=== PATIENT | male | born 1970 | race Two or more races ===

== ENCOUNTER 2019-12-02 10:58 | Emergency (ER) | payer OTHER ==
[2019-12-02 11:04] VITALS: TEMP 98
[2019-12-02] MEDS ORDERED: MORPHINE SULFATE 4 MG/ML SYRINGE IM STA (11:08)
--- NOTE | 2019-12-02 11:15 | ED ---
Lower Extremity Injury HPI - General Chief Complaint: Extremity Injury, Lower Stated Complaint: ankle injury-[facility] Time Seen by Provider: 12/02/19 11:04 Source: patient, RN notes reviewed Mode of arrival: wheelchair Limitations: no limitations - History of Present Illness Initial Comments: This a 49-year-old male presents emergency Department with chief complaint of left ankle foot injury. Patient states he was at work states that he is cleaning out a pain. States that there was a wet spot states she slipped, twisted his left foot, ankle. Patient states that he is unable bear weight secondary to pain. He had no head injury no loss conscious. Denies any other injuries from this. Patient had no prior fractures to his left ankle or foot. - Related Data Allergies Allergy/AdvReac Type Severity Reaction Status Date / Time No Known Allergies Allergy Verified 12/02/19 11:03 Review of Systems ROS Statement: Those systems with pertinent positive or pertinent negative responses have been documented in the HPI. ROS Other: All systems not noted in ROS Statement are negative. Past Medical History Past Medical History: No Reported History History of Any Multi-Drug Resistant Organisms: None Reported Past Surgical History: Orthopedic Surgery Past Psychological History: No Psychological Hx Reported Smoking Status: Never smoker Past Alcohol Use History: Occasional Past Drug Use History: None Reported General Exam Limitations: no limitations General appearance: alert, in no apparent distress Head exam: Present: atraumatic, normocephalic, normal inspection Respiratory exam: Present: normal lung sounds bilaterally. Absent: respiratory distress, wheezes, rales, rhonchi, stridor Cardiovascular Exam: Present: regular rate, normal rhythm, normal heart sounds. Absent: systolic murmur, diastolic murmur, rubs, gallop, clicks Extremities exam: Present: other (Left ankle, left foot there is moderate swelling slight ecchymosis neurovascular intact there is moderate tenderness with palpation to lateral foot and lateral malleoli region) Neurological exam: Present: alert, oriented X3, CN II-XII intact, reflexes normal. Absent: motor sensory deficit Skin exam: Present: warm, dry, intact, normal color. Absent: rash Course Vital Signs 12/02/19 10:59 Temperature 98.0 F Pulse Rate 65 Respiratory 19 Rate Blood Pressure 155/99 O2 Sat by Pulse 99 Oximetry Procedures - Orthopedic Splinting/Casting Injury #1 Side: left Lower Extremity Injury Location: short leg, ankle, foot Lower Extremity Immobilizer: posterior splint, synthetic pre-padded splint Other Orthopedic Equipment: crutches Medical Decision Making - Medical Decision Making X-ray of the left foot shows fracture of the fifth metatarsal, left ankle there is a bony irregularity which appears to be chronic in nature no acute fracture. Patient was splinted follow-up with orthopedics. Disposition Clinical Impression: Left ankle sprain, Displaced fracture of fifth metatarsal bone, left foot, initial encounter for closed fracture Disposition: HOME SELF-CARE Condition: Stable Instructions (If sedation given, give patient instructions): Foot Fracture in Adults (ED) Additional Instructions: Please return to the Emergency Department if symptoms worsen or any other concerns. Is patient prescribed a controlled substance at d/c from ED?: No Referrals: None,Stated [Primary Care Provider] - 1-2 days Ilir Gr MD [Medical Doctor] - 1-2 days
--- NOTE | 2019-12-02 12:05 | XR ---
EXAMINATION TYPE: XR ankle complete 3 views LT, XR foot complete 3 views LT DATE OF EXAM: 12/02/2019 COMPARISON: NONE HISTORY: 49-year-old male with pain after twisting injury FINDINGS: Left ankle: There is bony irregularity along the region of the syndesmosis. Some bimalleolar soft tissue swelling is also noted. Talar dome is intact. Ankle mortise remains congruent. Subtalar joint align. Small de lineation of the Achilles tendon. No acute fracture, subluxation, or dislocation. Left foot: Mild degenerative spurring first metatarsal sesamoid joint. Hastings's toe. There is an oblique, minima lly angulated fracture involving the distal third shaft of the fifth metatarsal. IMPRESSION: 1. Left ankle: Chronic bony irregularity along the syndesmosis suggests remote high ankle sprain. Bim alleolar soft tissue swelling. No acute osseous pneumonia seen. 2. Left foot: Oblique, minimally angulated fracture involving the distal third shaft of the fifth met atarsal.
[2019-12-02] MEDS ORDERED: ACET/COD 300 MG/30 MG STARTER PACK 6 TAB BTL PO STA (12:22)
[2019-12-02 12:32] VITALS: BP 143/87; PULSE 63; RESP 17
== END 2019-12-02 12:32 | disposition home or self-care (01) ==
LOC: EC 10:58
DX: S92.352A Displaced fracture of fifth metatarsal bone, left foot, initial encounter for closed fracture (principal); S93.402A Sprain of unspecified ligament of left ankle, initial encounter; W18.40XA Slipping, tripping and stumbling without falling, unspecified, initial encounter; Y93.H9 Activity, other involving exterior property and land maintenance, building and construction; Y92.69 Other specified industrial and construction area as the place of occurrence of the external cause; Y99.0 Civilian activity done for income or pay
CPT/HCPCS: 73610; 73630; 99283; 29515; 96372; J2270

== ENCOUNTER → 2020-06-18 | Outpatient (CLI) | payer OTHER ==
--- NOTE | 2020-06-18 12:34 | XR ---
EXAMINATION TYPE: XR femur 2 views RT, XR tibia fibula 2 views RT, XR knee 4V RT DATE OF EXAM: 06/18/2020 COMPARISON: NONE HISTORY: 49-year-old male right knee contusion, injury with pain and swelling. FINDINGS: Right femur: The hip articulation appears intact. No acute fracture of the more proximal to mid femur. Right knee: There is moderate degenerative spurring in the medial patellofemoral compartment. Diffuse soft tissue swelling but marked along the anterior infrapatellar and prepatellar region. Corticated bone density along the patella suggesting sequela of remote injury. There is an underlying small to moderate knee joint effusion. No acute fracture, subluxation, or dislocation is seen. Right tibia/fibula: Subcutaneous soft tissue swelling extends down to the mid leg level. No acute fracture of the more mi d to distal tibia or fibula. Corticated bone fragment below the medial malleolus suggests sequela of prior injury. IMPRESSION (right femur, knee, tibia/fibula): 1. Extensive soft tissue swelling especially along the prepatellar and anterior infrapatellar regions . Subcutaneous soft tissue swelling extends down to the mid leg level. 2. Underlying [id number] knee joint effusion. MRI can assess for any potential internal derang ement if indicated. 3. Moderate medial and patellofemoral compartment osteoarthrosis. Otherwise, no acute osseous abnorma lity seen.
== END | disposition home or self-care (01) ==
LOC: RADXRMAIN 11:21
PROVIDERS: ATTEND Emergency Medicine
DX: M17.11 Unilateral primary osteoarthritis, right knee (principal)

== ENCOUNTER 2021-02-17 10:40 | Emergency (ER) | payer OTHER ==
[2021-02-17 10:44] VITALS: TEMP 97.7
[2021-02-17] MEDS ORDERED: SODIUM CHLORIDE 0.9% 1,000 ML IV STA (10:49)
--- NOTE | 2021-02-17 10:52 | ED ---
SOB HPI - General Chief Complaint: Shortness of Breath Stated Complaint: SOB (10 days post Covid dx) Time Seen by Provider: 02/17/21 10:46 Source: patient, RN notes reviewed Mode of arrival: ambulatory Limitations: no limitations - History of Present Illness Initial Comments: Patient is a 50-year-old male that presents to emergency department complaining of increased dyspnea. He notes that he did test positive for Covid on 01/03/2021. He notes that since then he related doesn't feel he's got much better. He notes that dyspnea is increased on exertion while he is trying to work. He notes a tried to go to work today but decided come in to get ev aluated. He was well-appearing, well-hydrated while sitting up in bed during exam and interview. He notes that it feels like he just can't get a full breath and. He was in no distress or pain. He denied any chest pain headache nausea vomiting diarrhea constipation fever fatigue chills. - Related Data Home Medications Medication Instructions Recorded Confirmed No Known Home Medications 02/17/21 02/17/21 Allergies Allergy/AdvReac Type Severity Reaction Status Date / Time No Known Allergies Allergy Verified 02/17/21 11:39 Review of Systems ROS Statement: Those systems with pertinent positive or pertinent negative responses have been documented in the HPI. ROS Other: All systems not noted in ROS Statement are negative. Past Medical History Past Medical History: No Reported History History of Any Multi-Drug Resistant Organisms: None Reported Past Surgical History: Orthopedic Surgery Past Psychological History: No Psychological Hx Reported Smoking Status: Never smoker Past Alcohol Use History: Occasional Past Drug Use History: None Reported General Exam Limitations: no limitations General appearance: alert, in no apparent distress Head exam: Present: atraumatic, normocephalic, normal inspection Eye exam: Present: normal appearance, PERRL, EOMI. Absent: scleral icterus, conjunctival injection, periorbital swelling Neck exam: Present: normal inspection Respiratory exam: Present: normal lung sounds bilaterally. Absent: respiratory distress, wheezes, rales, rhonchi, stridor Cardiovascular Exam: Present: regular rate, normal rhythm, normal heart sounds. Absent: systolic murmur, diastolic murmur, rubs, gallop, clicks GI/Abdominal exam: Present: soft, normal bowel sounds. Absent: distended, tenderness, guarding, rebound, rigid Extremities exam: Present: normal inspection, full ROM, normal capillary refill. Absent: tenderness, pedal edema, joint swelling, calf tenderness Neurological exam: Present: alert, oriented X3, CN II-XII intact Psychiatric exam: Present: normal affect, normal mood Skin exam: Present: warm, dry, intact, normal color. Absent: rash Course Vital Signs 02/17/21 10:41 Temperature 97.7 F Pulse Rate 73 Respiratory 16 Rate Blood Pressure 126/85 O2 Sat by Pulse 95 Oximetry Medical Decision Making - Medical Decision Making 80-year-old male with dyspnea who is Covid-positive on 01/03/2021. Labs, chest x-ray, 1 L normal saline ordered. Labs unremarkable. Chest x-ray shows patchy infiltrates. Case discussed with Dr. Esquivel, patient discharge home with conservative management. - Lab Data Result diagrams: 02/17/21 11:26 02/17/21 11:26 Lab Results 02/17/21 02/17/21 02/17/21 Range/Units 11:26 11:26 11:26 WBC 6.8 (3.8-10.6) k/uL RBC 4.35 (4.30-5.90) m/uL Hgb 13.6 (13.0-17.5) gm/dL Hct 37.9 L (39.0-53.0) % MCV 87.0 (80.0-100.0) fL MCH 31.2 (25.0-35.0) pg MCHC 35.9 (31.0-37.0) g/dL RDW 11.9 (11.5-15.5) % Plt Count 535 H (150-450) k/uL MPV 8.2 Neutrophils % 71 % Lymphocytes % 20 % Monocytes % 5 % Eosinophils % 3 % Basophils % 1 % Neutrophils # 4.8 (1.3-7.7) k/uL Lymphocytes # 1.4 (1.0-4.8) k/uL Monocytes # 0.4 (0-1.0) k/uL Eosinophils # 0.2 (0-0.7) k/uL Basophils # 0.1 (0-0.2) k/uL Sodium 138 (137-145) mmol/L Potassium 4.1 (3.5-5.1) mmol/L Chloride 105 (98-107) mmol/L Carbon Dioxide 23 (22-30) mmol/L Anion Gap 10 mmol/L BUN 12 (9-20) mg/dL Creatinine 0.78 (0.66-1.25) mg/dL Est GFR (CKD-EPI)AfAm >90 (>60 ml/min/1.73 sqM) Est GFR (CKD-EPI)NonAf >90 (>60 ml/min/1.73 sqM) Glucose 129 H (74-99) mg/dL Plasma Lactic Acid Kory 1.6 (0.7-2.0) mmol/L Calcium 9.3 (8.4-10.2) mg/dL Total Bilirubin 0.5 (0.2-1.3) mg/dL AST 33 (17-59) U/L ALT 51 H (4-49) U/L Alkaline Phosphatase 77 (38-126) U/L Total Protein 7.5 (6.3-8.2) g/dL Albumin 3.8 (3.5-5.0) g/dL - EKG Data -: EKG Interpreted by Me EKG shows normal: sinus rhythm Rate: normal EKG Comments: Ventricular rate 75 bpm, AL interval 160 ms, QRS duration 84 ms, QT/QTC 396/442 ms, PRT axis 27/53/25. Normal sinus rhythm, normal ECG. - Radiology Data Radiology results: report reviewed, image reviewed Chest x-ray: Patchy airspace infiltrate are seen bilaterally. Disposition Clinical Impression: Pneumonia due to COVID-19 virus Disposition: HOME SELF-CARE Condition: Stable Instructions (If sedation given, give patient instructions): Coronavirus Disease 2019 (COVID-19) Additional Instructions: Please return to the Emergency Department if symptoms worsen or any other concerns. Follow-up with primary care in 3-5 days. Continue to increase oral fluids and take [id number] anti-inflammatories for any aches pains or fevers. It will just take some time. Lungs to heal fully from Covid infection. Is patient prescribed a controlled substance at d/c from ED?: No Referrals: None,Stated [Primary Care Provider] - 1-2 days Time of Disposition: 13:27
[2021-02-17 11:53] LABS: ALT 51 U/L (4-49); AST 33 U/L (17-59); African American GFR (CKD) >90 (>60 ml/min/1.73 sqM); Albumin 3.8 g/dL (3.5-5.0); Alkaline Phosphatase 77 U/L (38-126); Anion Gap 10 mmol/L; Blood Urea Nitrogen 12 mg/dL (9-20); Calcium 9.3 mg/dL (8.4-10.2); Carbon Dioxide 23 mmol/L (22-30); Chloride 105 mmol/L (98-107); Glucose 129 mg/dL (74-99); Non-African American GFR(CKD) >90 (>60 ml/min/1.73 sqM); Potassium 4.1 mmol/L (3.5-5.1); Sodium 138 mmol/L (137-145); Total Bilirubin 0.5 mg/dL (0.2-1.3); Total Protein 7.5 g/dL (6.3-8.2)
--- NOTE | 2021-02-17 11:53 | XR ---
EXAMINATION TYPE: XR chest 2V DATE OF EXAM: 02/17/2021 COMPARISON: 02/17/21 HISTORY: difficulty breathing TECHNIQUE: Frontal and lateral views of the chest are obtained. FINDINGS: Patchy airspace infiltrates are seen bilaterally. No evidence for pneumothorax. No pleural effusion. The cardiac silhouette size is within normal limits. The osseous structures are grossly intact. IMPRESSION: 1. Patchy airspace infiltrates are seen bilaterally.
[2021-02-17 11:57] LABS: Basophils # (A) 0.1 k/uL (0-0.2); Basophils % (A) 1 %; Eosinophils # (A) 0.2 k/uL (0-0.7); Eosinophils % (A) 3 %; HCT 37.9 % (39.0-53.0); HGB 13.6 gm/dL (13.0-17.5); Lymphocytes # (A) 1.4 k/uL (1.0-4.8); Lymphocytes % (A) 20 %; MCH 31.2 pg (25.0-35.0); MCHC 35.9 g/dL (31.0-37.0); Mean Platelet Volume 8.2; Monocytes # (A) 0.4 k/uL (0-1.0); Monocytes % (A) 5 %; Neutrophils # (A) 4.8 k/uL (1.3-7.7); Neutrophils % (A) 71 %; Platelet Count 535 k/uL (150-450); RBC 4.35 m/uL (4.30-5.90); RDW 11.9 % (11.5-15.5); WBC 6.8 k/uL (3.8-10.6)
[2021-02-17] MEDS ORDERED: DEXAMETHASONE SOD PHOSPHATE 10 MG/ML 1 ML VIAL IV STA (13:21)
[2021-02-17 13:48] VITALS: BP 139/95; PULSE 68; RESP 18
== END 2021-02-17 13:48 | disposition home or self-care (01) ==
LOC: EC 10:40
DX: U07.1 COVID-19 (principal); J12.82 Pneumonia due to coronavirus disease 2019
CPT/HCPCS: 36415; 93005; 80053; 83605; 85025; 71046; 99285; 96374; 96361 ×3; J1100

== ENCOUNTER 2021-02-22 13:20 | Emergency (ER) | payer OTHER ==
[2021-02-22 13:38] VITALS: BP 123/82; TEMP 97.9
[2021-02-22 14:08] VITALS: PULSE 76; RESP 18
[2021-02-22] MEDS ORDERED: SODIUM CHLORIDE 0.9% 1,000 ML IV STA (14:52)
--- NOTE | 2021-02-22 15:28 | ED ---
ENT HPI - General Chief complaint: ENT Stated complaint: revisit - Covid+, trouble swallowing Time Seen by Provider: 02/22/21 14:39 Source: patient Mode of arrival: ambulatory Limitations: no limitations - History of Present Illness Initial comments: 50-year-old male presents emergency Department and she will complain of difficulty swallowing and abdominal pain. Patient reports symptoms began yesterday when he developed difficulty swallowing. States he still able to eat and drink a feels like the food is "getting stuck" in his throat although it is still able to pass through to the stomach. He denies any nausea or vomiting or diarrhea. States she is also developed some epigastric abdominal pain that seems to be exacerbated whenever he is eating large meals. Denies any chest pain or shortness of breath. He denies any choking episodes or difficulty breathing. Denies painful swallowing. - Related Data Home Medications Medication Instructions Recorded Confirmed No Known Home Medications 02/17/21 02/22/21 Allergies Allergy/AdvReac Type Severity Reaction Status Date / Time No Known Allergies Allergy Verified 02/22/21 16:10 Review of Systems ROS Statement: Those systems with pertinent positive or pertinent negative responses have been documented in the HPI. ROS Other: All systems not noted in ROS Statement are negative. Past Medical History Past Medical History: No Reported History History of Any Multi-Drug Resistant Organisms: None Reported Past Surgical History: Orthopedic Surgery Past Psychological History: No Psychological Hx Reported Smoking Status: Never smoker Past Alcohol Use History: Occasional Past Drug Use History: None Reported General Exam Limitations: no limitations General appearance: alert, in no apparent distress Head exam: Present: atraumatic, normocephalic, normal inspection Eye exam: Present: normal appearance, PERRL, EOMI Pupils: Present: normal accommodation ENT exam: Present: normal exam, normal oropharynx, mucous membranes moist, TM's normal bilaterally, normal external ear exam Neck exam: Present: normal inspection, full ROM. Absent: tenderness Respiratory exam: Present: normal lung sounds bilaterally. Absent: respiratory distress, wheezes, rales, rhonchi, stridor, chest wall tenderness, accessory muscle use Cardiovascular Exam: Present: regular rate, normal rhythm, normal heart sounds. Absent: systolic murmur GI/Abdominal exam: Present: soft, tenderness (Mild epigastric tenderness). A bsent: distended, guarding, rebound, rigid Extremities exam: Present: normal inspection, full ROM, normal capillary refill. Absent: tenderness, pedal edema, joint swelling Back exam: Present: normal inspection, full ROM. Absent: tenderness, CVA ten derness (R), CVA tenderness (L) Neurological exam: Present: alert, oriented X3 Psychiatric exam: Present: normal affect, normal mood Skin exam: Present: warm, dry, intact, normal color Course Vital Signs 02/22/21 13:36 Temperature 97.9 F Pulse Rate 76 Respiratory 18 Rate Blood Pressure 123/82 O2 Sat by Pulse 97 Oximetry Medical Decision Making - Medical Decision Making 50-year-old male presents to the emergency department with a chief complaint of abdominal pain and difficulty swallowing. The physical examination is unremarkable. I was able to watch the patient ED applesauce and drink water without any difficulty. CBC CMP UA unremarkable. Barium swallow test performed showing tertiary contractions of the esophagus with occasional delayed emptying into the stomach. This can be correlated for dysmotility. Direct visualization is recommended by radiology. Advised the patient to follow up with a GI specialist. Return parameters were discussed with patient was standing agreeable. Case discussed with - Lab Data Result diagrams: 02/22/21 15:36 02/22/21 15:36 Lab Results 02/22/21 02/22/21 02/22/21 Range/Units 15:36 15:36 15:36 WBC 6.3 (3.8-10.6) k/uL RBC 4.83 (4.30-5.90) m/uL Hgb 14.4 (13.0-17.5) gm/dL Hct 42.3 (39.0-53.0) % MCV 87.6 (80.0-100.0) fL MCH 29.8 (25.0-35.0) pg MCHC 34.0 (31.0-37.0) g/dL RDW 13.0 (11.5-15.5) % Plt Count 557 H (150-450) k/uL MPV 6.9 Neutrophils % 57 % Lymphocytes % 32 % Monocytes % 4 % Eosinophils % 3 % Basophils % 1 % Neutrophils # 3.6 (1.3-7.7) k/uL Lymphocytes # 2.0 (1.0-4.8) k/uL Monocytes # 0.3 (0-1.0) k/uL Eosinophils # 0.2 (0-0.7) k/uL Basophils # 0.1 (0-0.2) k/uL Sodium 138 (137-145) mmol/L Potassium 4.5 (3.5-5.1) mmol/L Chloride 106 (98-107) mmol/L Carbon Dioxide 24 (22-30) mmol/L Anion Gap 8 mmol/L BUN 14 (9-20) mg/dL Creatinine 0.80 (0.66-1.25) mg/dL Est GFR (CKD-EPI)AfAm >90 (>60 ml/min/1.73 sqM) Est GFR (CKD-EPI)NonAf >90 (>60 ml/min/1.73 sqM) Glucose 98 (74-99) mg/dL Calcium 9.5 (8.4-10.2) mg/dL Total Bilirubin 0.5 (0.2-1.3) mg/dL AST 23 (17-59) U/L ALT 41 (4-49) U/L Alkaline Phosphatase 70 (38-126) U/L Total Protein 7.5 (6.3-8.2) g/dL Albumin 4.0 (3.5-5.0) g/dL Amylase 63 (30-110) U/L Lipase 146 (23-300) U/L Urine Color Light Yellow Urine Appearance Clear (Clear) Urine pH 5.5 (5.0-8.0) Ur Specific [place] 1.012 (1.001-1.035) Urine Protein Negative (Negative) Urine Glucose (UA) Negative (Negative) Urine Ketones Negative (Negative) Urine Blood Negative (Negative) Urine Nitrite Negative (Negative) Urine Bilirubin Negative (Negative) Urine Urobilinogen <2.0 (<2.0) mg/dL Ur Leukocyte Esterase Negative (Negative) Disposition Clinical Impression: Difficulty swallowing, Abdominal pain Disposition: HOME SELF-CARE Condition: Stable Instructions (If sedation given, give patient instructions): Dysphagia (ED) Additional Instructions: Follow with a GI specialist. Return to emergency department if symptoms worsen. Is patient prescribed a controlled substance at d/c from ED?: No Referrals: None,Stated [Primary Care Provider] - 1-2 days Jarrod Lopez MD [STAFF PHYSICIAN] - 1-2 days Time of Disposition: 16:08
--- NOTE | 2021-02-22 15:31 | FL ---
EXAMINATION TYPE: FL barium swallow DATE OF EXAM: 02/22/2021 CLINICAL HISTORY: Dysphasia TECHNIQUE: A double contrast esophagram is performed utilizing air and barium. A total of 62 second s of fluoroscopic time was utilized during procedure. 33 images submitted COMPARISON: None FINDINGS: The esophagus shows occasional tertiary contractions of the esophagus and episodes of delay ed emptying into the stomach. No evidence of hiatal hernia or stricture noted. No significant gastro esophageal reflux was seen during real time performance of this study. IMPRESSION: 1. Tertiary contractions of the esophagus with occasional delayed emptying into the stomach correlate for dysmotility. Direct visualization is recommended.
[2021-02-22 15:48] LABS: Basophils # (A) 0.1 k/uL (0-0.2); Basophils % (A) 1 %; Eosinophils # (A) 0.2 k/uL (0-0.7); Eosinophils % (A) 3 %; HCT 42.3 % (39.0-53.0); HGB 14.4 gm/dL (13.0-17.5); Lymphocytes % (A) 32 %; MCH 29.8 pg (25.0-35.0); MCV 87.6 fL (80.0-100.0); Mean Platelet Volume 6.9; Monocytes # (A) 0.3 k/uL (0-1.0); Monocytes % (A) 4 %; Neutrophils # (A) 3.6 k/uL (1.3-7.7); Neutrophils % (A) 57 %; Platelet Count 557 k/uL (150-450); RBC 4.83 m/uL (4.30-5.90); WBC 6.3 k/uL (3.8-10.6)
[2021-02-22 15:57] LABS: Appearance,Urine Clear (Clear); Bilirubin,Urine Negative (Negative); Blood,Urine Negative (Negative); Color,Urine Light Yellow; Glucose,Urine (UA) Negative (Negative); Ketones,Urine Negative (Negative); Leukocyte Esterase,Urine Negative (Negative); Nitrite,Urine Negative (Negative); PH, Urine 5.5 (5.0-8.0); Protein,Urine Negative (Negative); Specific Gravity,Urine 1.012 (1.001-1.035); Urobilinogen,Urine <2.0 mg/dL (<2.0)
[2021-02-22 16:04] LABS: ALT 41 U/L (4-49); AST 23 U/L (17-59); African American GFR (CKD) >90 (>60 ml/min/1.73 sqM); Alkaline Phosphatase 70 U/L (38-126); Amylase 63 U/L (30-110); Anion Gap 8 mmol/L; Blood Urea Nitrogen 14 mg/dL (9-20); Calcium 9.5 mg/dL (8.4-10.2); Carbon Dioxide 24 mmol/L (22-30); Chloride 106 mmol/L (98-107); Glucose 98 mg/dL (74-99); Lipase 146 U/L (23-300); Non-African American GFR(CKD) >90 (>60 ml/min/1.73 sqM); Potassium 4.5 mmol/L (3.5-5.1); Sodium 138 mmol/L (137-145); Total Bilirubin 0.5 mg/dL (0.2-1.3); Total Protein 7.5 g/dL (6.3-8.2)
== END 2021-02-22 16:19 | disposition home or self-care (01) ==
LOC: EC 13:20
DX: R13.10 Dysphagia, unspecified (principal); R10.13 Epigastric pain
CPT/HCPCS: 36415; 74220; 80053; 81003; 82150; 83690; 85025; 99284

== ENCOUNTER → 2022-06-27 | Outpatient (CLI) | payer OTHER ==
--- NOTE | 2022-06-27 09:00 | US ---
EXAMINATION TYPE: US gallbladder DATE OF EXAM: 06/27/2022 COMPARISON: NONE CLINICAL HISTORY: R10.84 abd pain, K21.9 gerd. TECHNIQUE: Multiple sonographic images of the right upper quadrant are obtained. FINDINGS: EXAM MEASUREMENTS: Liver Length: 16.3 cm Gallbladder Wall: 0.2 cm CBD: 0.3 cm Right Kidney: 10.5 x 3.5 x 4.8 cm [employer] NOTES: Pancreas: wnl Liver: hypoechoic areas adjacent to gallbladder probable focal fatty sparing Gallbladder: probable mild sludge Evidence for sonographic Richard's sign: No CBD: wnl Right Kidney: wnl IMPRESSION: 1. Hepatocellular disease commonly relating to hepatic steatosis. There is focal fatty sparing noted . 2. Mild biliary sludge.
--- NOTE | 2022-06-27 09:27 | FL ---
EXAMINATION TYPE: FL UGI air DATE OF EXAM: 06/27/2022 COMPARISON: Esophagram 02/22/2021. HISTORY: R10.84 abd pain, K21.9 gerd TECHNIQUE: A double contrast UGI study is performed. A total of 31 seconds of fluoroscopic time was utilized during procedure and 190 images obtained. FINDINGS: The esophagus shows normal motility and emptying into the stomach. No evidence of hiatal hernia or s tricture noted. There are filling defects demonstrated within the distal third of the esophagus with mucosal thickening. The stomach shows normal distensibility, peristalsis, and mucosal folds. No evidence of any mass or ulcer disease. No significant gastroesophageal reflux was seen during real time performance of this study. The duodenal bulb, sweep, and proximal small bowel loops are unremarkable. IMPRESSION: Distal third of the esophagus shows mucosal thickening with suggested filling defects which may repre sent ulceration. Findings suggest esophagitis. Consider further evaluation with endoscopy.
== END | disposition home or self-care (01) ==
LOC: RADUSWWP 08:02
PROVIDERS: ATTEND Family Medicine
DX: K76.0 Fatty (change of) liver, not elsewhere classified (principal)
CPT/HCPCS: 74246; 76705

== ENCOUNTER 2022-10-24 11:25 | Emergency (ER) | payer OTHER ==
--- NOTE | 2022-10-24 11:40 | ED ---
General Adult HPI - General Source: patient, RN notes reviewed Mode of arrival: ambulatory Limitations: no limitations <Orville Reyes - Last Filed: 10/24/22 11:39> <Octaviano Husain - Last Filed: 10/24/22 14:34> - General Stated complaint: Abd pain Time Seen by Provider: 10/24/22 11:39 - History of Present Illness Initial comments: 52-year-old male presents emergency Department with chief complaint of right- sided abdominal pain. Patient this started on Monday. Patient states it does hurt to move. He denies any prior abdominal surgeries including cholecystomy, appendectomy. Patient had no vomiting he states he is having bowel movements is less than usual. No dysuria no hematuria no reports of fever. (Orville Reyes) This a 52-year-old male presents emergency department stating that he has been experiencing some right-sided lower back and flank pain. Patient states symptoms started on Monday and they've continued to hurt. Patient states movement does seem to make it worse. Patient denies any nausea or vomiting. Patient denies any diarrhea. Patient denies any fever chills. Patient has chest pain. Patient said difficulty breathing or shortness of breath. Patient states he has not lifted or moved or worked out and any way last week since this occurred so he does not believe it secondary to an injury. Patient is still eating and drinking just not as much is normal (Octaviano Husain) - Related Data Previous Rx's Medication Instructions Recorded Cyclobenzaprine [Flexeril] 10 mg PO TID #20 tab 10/24/22 Ibuprofen [Motrin] 600 mg PO Q6HR PRN #20 tab 10/24/22 Allergies Allergy/AdvReac Type Severity Reaction Status Date / Time No Known Allergies Allergy Verified 02/22/21 16:10 Review of Systems ROS Other: All systems not noted in ROS Statement are negative. <Orville Reyes - Last Filed: 10/24/22 11:39> ROS Other: All systems not noted in ROS Statement are negative. <Octaviano Husain - Last Filed: 10/24/22 14:34> ROS Statement: Those systems with pertinent positive or pertinent negative responses have been documented in the HPI. Past Medical History Past Medical History: No Reported History History of Any Multi-Drug Resistant Organisms: None Reported Past Surgical History: Orthopedic Surgery Past Psychological History: No Psychological Hx Reported Smoking Status: Never smoker Past Alcohol Use History: Occasional Past Drug Use History: None Reported <AnselmoarmaniOrville Pamella - Last Filed: 10/24/22 11:39> General Exam <Octaviano Husain - Last Filed: 10/24/22 14:34> - General Exam Comments Initial Comments: GENERAL: Patient is well-developed and well-nourished. Patient is nontoxic and well- hydrated and is in mild distress. ENT: Neck is soft and supple. No significant lymphadenopathy is noted. Oropharynx is clear. Moist mucous membranes. Neck has full range of motion without eliciting any pain. EYES: The sclera were anicteric and conjunctiva were pink and moist. Extraocular movements were intact and pupils were equal round and reactive to light. Eyelids were unremarkable. PULMONARY: Unlabored respirations. Good breath sounds bilaterally. No audible rales rhonchi or wheezing was noted. CARDIOVASCULAR: There is a regular rate and rhythm without any murmurs gallops or rubs. ABDOMEN: Patient has tenderness to the right flank going into the lower back. SKIN: Skin is clear with no lesions or rashes and otherwise unremarkable. NEUROLOGIC: Patient is alert and oriented x3. Cranial nerves II through XII are grossly intact. Motor and sensory are also intact. Normal speech, volume and content. Symmetrical smile. MUSCULOSKELETAL: Normal extremities with adequate strength and full range of motion. LYMPHATICS: No significant lymphadenopathy is noted PSYCHIATRIC: Normal psychiatric evaluation. (Octaviano Husain) Course Vital Signs 10/24/22 11:53 Temperature 97.7 F Pulse Rate 60 Respiratory 16 Rate Blood Pressure 127/83 O2 Sat by Pulse 98 Oximetry Medical Decision Making - Lab Data Result diagrams: 10/24/22 13:23 10/24/22 13:23 <Octaviano Husain - Last Filed: 10/24/22 14:34> - Medical Decision Making Was pt. sent in by a medical professional or institution (, [facility], DIRECTOR OF SUSTAINABILITY, urgent care, hospital, or longterm...) When possible be specific @ -No Did you speak to anyone other than the patient for history (EMS, parent, family, police, friend...)? What history was obtained from this source @ -No Did you review nursing and triage notes (agree or disagree)? Why? @ -I reviewed and agree with nursing and triage notes Were old charts reviewed (outside hosp., previous admission, EMS record, old EKG, old radiological studies, urgent care reports/EKG's, longterm records)? Report findings @ -No old charts were reviewed Differential Diagnosis (chest pain, altered mental status, abdominal pain women, abdominal pain men, vaginal bleeding, weakness, fever, dyspnea, syncope, headache, dizziness, GI bleed, back pain, seizure, CVA, palpatations, mental health)? @ -Differential Abdominal Pain Men: Appendicitis, cholecystitis, diverticulosis, ischemic bowel, pancreatitis, hepatitis, UTI, gastroenteritis, AAA, incarcerated hernia, bowel obstruction, constipation, inflammatory bowel, hepatitis, peptic ulcer disease, splenic infarction, perforated viscus, testicular torsion, this is not meant to be an al l-inclusive list EKG interpreted by me (3pts min.). @ -As above X-rays interpreted by me (1pt min.). @ -None done CT interpreted by me (1pt min.). @ -No U/S interpreted by me (1pt. min.). @ -None done What testing was considered but not performed or refused? (CT, X-rays, U/S, labs)? Why? @ -Did consider CT of the abdomen and pelvis was initially his complaint on the chart was abdominal pain but his pain was much more in the lower back and a little in the flank it was reproducible with palpation it also is worse with bending or twisting. What meds were considered but not given or refused? Why? @ -None Did you discuss the management of the patient with other professionals (professionals i.e. , PA, DIRECTOR OF SUSTAINABILITY, lab, RT, psych nurse, social work job titles, float tender, teacher, soil science technical officer, case hardener)? Give summary @ -No Was smoking cessation discussed for >3mins.? @ -No Was critical care preformed (if so, how long)? @ -No Were there social determinants of health that impacted care today? How? (Homelessness, low income, unemployed, alcoholism, drug addiction, transportation, low edu. Level, literacy, decrease access to med. care, usp, r ehab)? @ -No Was there de-escalation of care discussed even if they declined (Discuss DNR or withdrawal of care, Hospice)? DNR status @ -No What co-morbidities impacted this encounter? (DM, HTN, Smoking, COPD, CAD, Cancer, CVA, ARF, Chemo, Hep., AIDS, mental health diagnosis, sleep apnea, morbid obesity)? @ -None Was patient admitted / discharged? Hospital course, mention meds given and route, prescriptions, significant lab abnormalities, going to OR and other pertinent info. @ -Discharged home to follow-up with the primary medical care doctor. Patient did get Toradol emergency department. He looked more comfortable but he was scrap kettle tender on palpation he had no abdominal tenderness whatsoever Undiagnosed new problem with uncertain prognosis? @ -No Drug Therapy requiring intensive monitoring for toxicity (Heparin, Nitro, Insulin, Cardizem)? @ -No Were any procedures done? @ -No Diagnosis/symptom? @ -Lower back strain Acute, or Chronic, or Acute on Chronic? @ -Acute Uncomplicated (without systemic symptoms) or Complicated (systemic symptoms)? @ -Uncomplicated transfer techs Side effects of treatment? @ -No Exacerbation, Progression, or Severe Exacerbation? @ -No Poses a threat to life or bodily function? How? (Chest pain, [place], [place], pneumonia, PE, COPD, DKA, ARF, appy, cholecystitis, CVA, Diverticulitis, Homicidal, Suicidal, threat to staff... and all critical care pts) @ -No (Octaviano Husain) - Lab Data Lab Results 10/24/22 10/24/22 10/24/22 Range/Units 13:23 13:23 13:23 WBC 5.1 (3.8-10.6) k/uL RBC 4.94 (4.30-5.90) m/uL Hgb 15.3 (13.0-17.5) gm/dL Hct 44.3 (39.0-53.0) % MCV 89.7 (80.0-100.0) fL MCH 30.9 (25.0-35.0) pg MCHC 34.4 (31.0-37.0) g/dL RDW 12.2 (11.5-15.5) % Plt Count 220 (150-450) k/uL MPV 8.9 Neutrophils % 46 % Lymphocytes % 38 % Monocytes % 7 % Eosinophils % 6 % Basophils % 1 % Neutrophils # 2.3 (1.3-7.7) k/uL Lymphocytes # 1.9 (1.0-4.8) k/uL Monocytes # 0.4 (0-1.0) k/uL Eosinophils # 0.3 (0-0.7) k/uL Basophils # 0.1 (0-0.2) k/uL Sodium 140 (137-145) mmol/L Potassium 4.3 (3.5-5.1) mmol/L Chloride 106 (98-107) mmol/L Carbon Dioxide 27 (22-30) mmol/L Anion Gap 7 mmol/L BUN 12 (9-20) mg/dL Creatinine 1.02 (0.66-1.25) mg/dL Est GFR (CKD-EPI)AfAm >90 (>60 ml/min/1.73 sqM) Est GFR (CKD-EPI)NonAf 84 (>60 ml/min/1.73 sqM) Glucose 161 H (74-99) mg/dL Plasma Lactic Acid Kory (0.7-2.0) mmol/L Calcium 9.3 (8.4-10.2) mg/dL Total Bilirubin 0.5 (0.2-1.3) mg/dL AST 35 (17-59) U/L ALT 91 H (4-49) U/L Alkaline Phosphatase 58 (38-126) U/L Total Protein 7.9 (6.3-8.2) g/dL Albumin 4.4 (3.5-5.0) g/dL Amylase 64 (30-110) U/L Lipase 132 (23-300) U/L Urine Color Yellow Urine Appearance Clear (Clear) Urine pH 5.5 (5.0-8.0) Ur Specific [place] 1.023 (1.001-1.035) Urine Protein Trace H (Negative) Urine Glucose (UA) 4+ H (Negative) Urine Ketones Negative (Negative) Urine Blood Trace H (Negative) Urine Nitrite Negative (Negative) Urine Bilirubin Negative (Negative) Urine Urobilinogen <2.0 (<2.0) mg/dL Ur Leukocyte Esterase Negative (Negative) Urine RBC 1 (0-5) /hpf Urine WBC 1 (0-5) /hpf Urine Mucus Few H (None) /hpf 10/24/22 Range/Units 13:23 WBC (3.8-10.6) k/uL RBC (4.30-5.90) m/uL Hgb (13.0-17.5) gm/dL Hct (39.0-53.0) % MCV (80.0-100.0) fL MCH (25.0-35.0) pg MCHC (31.0-37.0) g/dL RDW (11.5-15.5) % Plt Count (150-450) k/uL MPV Neutrophils % % Lymphocytes % % Monocytes % % Eosinophils % % Basophils % % Neutrophils # (1.3-7.7) k/uL Lymphocytes # (1.0-4.8) k/uL Monocytes # (0-1.0) k/uL Eosinophils # (0-0.7) k/uL Basophils # (0-0.2) k/uL Sodium (137-145) mmol/L Potassium (3.5-5.1) mmol/L Chloride (98-107) mmol/L Carbon Dioxide (22-30) mmol/L Anion Gap mmol/L BUN (9-20) mg/dL Creatinine (0.66-1.25) mg/dL Est GFR (CKD-EPI)AfAm (>60 ml/min/1.73 sqM) Est GFR (CKD-EPI)NonAf (>60 ml/min/1.73 sqM) Glucose (74-99) mg/dL Plasma Lactic Acid Kory 1.1 (0.7-2.0) mmol/L Calcium (8.4-10.2) mg/dL Total Bilirubin (0.2-1.3) mg/dL AST (17-59) U/L ALT (4-49) U/L Alkaline Phosphatase (38-126) U/L Total Protein (6.3-8.2) g/dL Albumin (3.5-5.0) g/dL Amylase (30-110) U/L Lipase (23-300) U/L Urine Color Urine Appearance (Clear) Urine pH (5.0-8.0) Ur Specific [place] (1.001-1.035) Urine Protein (Negative) Urine Glucose (UA) (Negative) Urine Ketones (Negative) Urine Blood (Negative) Urine Nitrite (Negative) Urine Bilirubin (Negative) Urine Urobilinogen (<2.0) mg/dL Ur Leukocyte Esterase (Negative) Urine RBC (0-5) /hpf Urine WBC (0-5) /hpf Urine Mucus (None) /hpf Disposition <Orville Reyes - Last Filed: 10/24/22 11:39> Is patient prescribed a controlled substance at d/c from ED?: No Time of Disposition: 14:33 <Octaviano Husain - Last Filed: 10/24/22 14:34> Clinical Impression: Back strain Disposition: HOME SELF-CARE Condition: Good Prescriptions: Cyclobenzaprine [Flexeril] 10 mg PO TID #20 tab Ibuprofen [Motrin] 600 mg PO Q6HR PRN #20 tab PRN Reason: For pain Referrals: Joshua Maya MD [Primary Care Provider] - 1-2 days
[2022-10-24] MEDS ORDERED: KETOROLAC 15 MG/ML 1 ML VIAL IVP STA (12:56)
[2022-10-24] MEDS ORDERED: SODIUM CHLORIDE 0.9% 1,000 ML IV ONE (12:57)
[2022-10-24 13:34] LABS: Basophils # (A) 0.1 k/uL (0-0.2); Basophils % (A) 1 %; Eosinophils # (A) 0.3 k/uL (0-0.7); Eosinophils % (A) 6 %; HCT 44.3 % (39.0-53.0); HGB 15.3 gm/dL (13.0-17.5); Lymphocytes # (A) 1.9 k/uL (1.0-4.8); Lymphocytes % (A) 38 %; MCH 30.9 pg (25.0-35.0); MCHC 34.4 g/dL (31.0-37.0); MCV 89.7 fL (80.0-100.0); Mean Platelet Volume 8.9; Monocytes # (A) 0.4 k/uL (0-1.0); Monocytes % (A) 7 %; Neutrophils # (A) 2.3 k/uL (1.3-7.7); Neutrophils % (A) 46 %; Platelet Count 220 k/uL (150-450); RBC 4.94 m/uL (4.30-5.90); RDW 12.2 % (11.5-15.5); WBC 5.1 k/uL (3.8-10.6)
[2022-10-24 13:39] LABS: Appearance,Urine Clear (Clear); Bilirubin,Urine Negative (Negative); Blood,Urine Trace (Negative); Color,Urine Yellow; Glucose,Urine (UA) 4+ (Negative); Ketones,Urine Negative (Negative); Leukocyte Esterase,Urine Negative (Negative); Mucus,Urine Few /hpf; Nitrite,Urine Negative (Negative); PH, Urine 5.5 (5.0-8.0); Protein,Urine Trace (Negative); RBC,Urine 1 /hpf (0-5); Specific Gravity,Urine 1.023 (1.001-1.035); Urobilinogen,Urine <2.0 mg/dL (<2.0); WBC,Urine 1 /hpf (0-5)
[2022-10-24 13:44] LABS: ALT 91 U/L (4-49); AST 35 U/L (17-59); African American GFR (CKD) >90 (>60 ml/min/1.73 sqM); Albumin 4.4 g/dL (3.5-5.0); Alkaline Phosphatase 58 U/L (38-126); Amylase 64 U/L (30-110); Anion Gap 7 mmol/L; Blood Urea Nitrogen 12 mg/dL (9-20); Calcium 9.3 mg/dL (8.4-10.2); Carbon Dioxide 27 mmol/L (22-30); Chloride 106 mmol/L (98-107); Glucose 161 mg/dL (74-99); Lipase 132 U/L (23-300); Non-African American GFR(CKD) 84 (>60 ml/min/1.73 sqM); Potassium 4.3 mmol/L (3.5-5.1); Sodium 140 mmol/L (137-145); Total Bilirubin 0.5 mg/dL (0.2-1.3); Total Protein 7.9 g/dL (6.3-8.2)
[2022-10-24 14:50] VITALS: BP 142/84; PULSE 72; RESP 18; TEMP 97.8
== END 2022-10-24 14:50 | disposition home or self-care (01) ==
LOC: EC 11:25
DX: S39.012A Strain of muscle, fascia and tendon of lower back, initial encounter (principal); X58.XXXA Exposure to other specified factors, initial encounter
CPT/HCPCS: 36415; 80053; 82150; 83605; 83690; 85025; 81001; 99284; 96374; 96361; J1885